=== PATIENT | male | born 1955 | race Caucasian/White ===

== ENCOUNTER 2018-05-19 14:36 | Inpatient (IN) | payer MEDICARE, OTHER ==
[~2018-05-19] VITALS: Ht 175.3 cm; Wt 99.2 kg
[2018-05-19] MEDS ORDERED: BUDE6HFA INH (14:57)
[2018-05-19 15:41] LABS: BASOPHILS ABSOLUTE AUTO 0.05 K/mm3 (0.00-0.23); BASOPHILS PERCENT AUTO 1 % (0-2); EOSINOPHILS ABSOLUTE AUTO 0.33 K/mm3 (0.00-0.68); EOSINOPHILS PERCENT AUTO 4 % (0-6); Hematocrit 44.2 % (37.0-53.0); Hemoglobin 15.6 g/dL (13.5-17.5); IMMATURE GRAN ABSOLUTE AUTO 0.02 K/mm3 (0.00-0.10); IMMATURE GRAN PERCENT AUTO 0 % (0-1); LYMPHOCYTES ABSOLUTE AUTO 2.39 K/mm3 (0.84-5.20); LYMPHOCYTES PERCENT AUTO 28 % (21-46); MONOCYTES ABSOLUTE AUTO 0.85 K/mm3 (0.16-1.47); MONOCYTES PERCENT AUTO 10 % (4-13); Mean Corpuscular HGB Conc 35.3 g/dL (31.5-36.5); Mean Corpuscular Volume 96 fL (80-100); NEUTROPHILS ABSOLUTE AUTO 4.97 K/mm3 (1.96-9.15); NEUTROPHILS PERCENT AUTO 58 % (41-73); Platelet Count 228 K/mm3 (150-400); RDW Coefficient Variation 12.1 % (11.7-14.2); RDW Standard Deviation 43.3 fL (35.1-46.3); Red Blood Cell Count 4.59 M/mm3 (4.30-5.90); White Blood Cell Count 8.61 K/mm3 (4.00-11.30)
[2018-05-19 16:01] LABS: Alanine Aminotransfer (ALT/SGP 30 U/L (12-78); Albumin, Blood 3.5 g/dL (3.4-5.0); Albumin/Globulin Ratio 1.1 (0.8-1.8); Alk Phos 95 U/L (50-136); Anion Gap 8 mmol/L (6-16); Aspartate Aminotrans (AST/SGOT 28 U/L (12-37); Bilirubin, Total 0.4 mg/dL (0.1-1.0); Blood Urea Nitrogen 19 mg/dL (8-24); Bun/Creatinine Ratio 19.7 (12.0-20.0); CO2, Blood 23 mmol/L (21-32); Calcium, Blood 8.5 mg/dL (8.5-10.1); Chloride, Blood 110 mmol/L (98-108); Creatinine, Blood 0.97 mg/dL (0.60-1.20); Globulin, Blood 3.3 g/dL (2.2-4.0); Glomerular Filtration Rate >60 (60-); Glucose, Blood 98 mg/dL (70-99); Potassium, Blood 4.3 mmol/L (3.5-5.5); Sodium, Blood 141 mmol/L (136-145); Total Protein, Blood 6.8 g/dL (6.4-8.2)
[2018-05-19 18:03] LABS: International Normalized Ratio 0.99; Prothrombin Time Results 10.2 Sec (9.7-11.5)
[2018-05-19] MEDS ORDERED: PARO10 PO (18:32)
[2018-05-19] MEDS ORDERED: LORATADINE PO (20:06)
[2018-05-19] MEDS ORDERED: ALBU90OI INH (20:06)
[2018-05-19] MEDS ORDERED: ST. JOHN'S WORT PO (20:08)
[2018-05-19] MEDS ORDERED: Vitamin B Comple1 EA PO (20:09)
[2018-05-19] MEDS ORDERED: ASPI81CH PO (20:54)
[2018-05-19] MEDS ORDERED: Excedrin Extra1 EACH PO (20:55)
[2018-05-19] MEDS ORDERED: IBUP400 PO (20:56)
[2018-05-19] MEDS ORDERED: SAW PALMETTO PO (20:59)
[2018-05-19] MEDS ORDERED: VITAMIN E PO (21:00)
[2018-05-19] MEDS ORDERED: Calcium + Vita1 EACH PO (21:01)
[2018-05-19] MEDS ORDERED: MELATONIN PO (21:01)
[2018-05-19] MEDS ORDERED: SELENIUM PO (21:02)
[2018-05-20 03:46] LABS: Anion Gap 8 mmol/L (6-16); Blood Urea Nitrogen 23 mg/dL (8-24); Bun/Creatinine Ratio 23.3 (12.0-20.0); CO2, Blood 26 mmol/L (21-32); Calcium, Blood 8.1 mg/dL (8.5-10.1); Chloride, Blood 108 mmol/L (98-108); Creatinine, Blood 0.99 mg/dL (0.60-1.20); Glomerular Filtration Rate >60 (60-); Glucose, Blood 97 mg/dL (70-99); Sodium, Blood 142 mmol/L (136-145)
[2018-05-21 04:07] LABS: Hemoglobin 15.6 g/dL (13.5-17.5); Mean Corpuscular HGB 33.7 pg (26.0-34.0); Mean Corpuscular HGB Conc 34.7 g/dL (31.5-36.5); Mean Corpuscular Volume 97 fL (80-100); Platelet Count 207 K/mm3 (150-400); RDW Coefficient Variation 12.2 % (11.7-14.2); Red Blood Cell Count 4.63 M/mm3 (4.30-5.90); White Blood Cell Count 5.99 K/mm3 (4.00-11.30)
[2018-05-21 04:27] LABS: Anion Gap 10 mmol/L (6-16); Blood Urea Nitrogen 21 mg/dL (8-24); CO2, Blood 24 mmol/L (21-32); Calcium, Blood 8.4 mg/dL (8.5-10.1); Chloride, Blood 107 mmol/L (98-108); Creatinine, Blood 0.96 mg/dL (0.60-1.20); Glomerular Filtration Rate >60 (60-); Glucose, Blood 116 mg/dL (70-99); Potassium, Blood 4.4 mmol/L (3.5-5.5); Sodium, Blood 141 mmol/L (136-145)
[2018-05-21] MEDS ORDERED: CARV3.125 PO (10:34)
[2018-05-21] MEDS ORDERED: ATOR40TA PO (10:34)
[2018-05-21] MEDS ORDERED: CLOP75 PO (10:35)
[2018-05-21] MEDS ORDERED: Nitrostat0.4 MG SL (10:36)
== END 2018-05-21 11:17 | disposition home or self-care (01) | DRG 247 ==
LOC: ER 14:36 → MEDS 17:31 → PCU 05-20 11:56 → MEDS 05-20 11:56 → PCU 05-20 13:24
PROVIDERS: Emergency Medicine; Internal Medicine
PROC: 027135Z Dilation of Coronary Artery, Two Arteries with Two Drug-eluting Intraluminal Devices, Percutaneous Approach (ICD-10-PCS; principal; 2018-05-20)
PROC: B241ZZ3 Ultrasonography of Multiple Coronary Arteries, Intravascular (ICD-10-PCS; 2018-05-20)
PROC: 4A023N7 Measurement of Cardiac Sampling and Pressure, Left Heart, Percutaneous Approach (ICD-10-PCS; 2018-05-20)
PROC: B2111ZZ Fluoroscopy of Multiple Coronary Arteries using Low Osmolar Contrast (ICD-10-PCS; 2018-05-20)
DX: I21.4 Non-ST elevation (NSTEMI) myocardial infarction (principal); I25.10 Atherosclerotic heart disease of native coronary artery without angina pectoris; E78.5 Hyperlipidemia, unspecified; G47.33 Obstructive sleep apnea (adult) (pediatric); E66.9 Obesity, unspecified; Z68.31 Body mass index [BMI] 31.0-31.9, adult; F43.10 Post-traumatic stress disorder, unspecified; J92.0 Pleural plaque with presence of asbestos; Z79.899 Other long term (current) drug therapy; Z79.82 Long term (current) use of aspirin
CPT/HCPCS: 36415; 80048; 80053; 84484; 85025; 85027; 85347; 85610; 85730; 92978; 92979; 93005; 93010; 93306; 93458; 93571; 93572; 94660; 94762; 96372; 96374; 96375; 99152; 99153; 99285-25; C1725; C1753; C1769; C1874; C1894; C9600; C9601; G0378; J1644; J2250; J3010; J7030; Q9967

== ENCOUNTER 2022-11-12 20:44 | Inpatient (IN) | payer OTHER, MEDICARE ==
[~2022-11-12] VITALS: Ht 175.3 cm; Wt 102.8 kg
[~2022-11-12 20:44] MED LIST: ALBU90OI INH; ASPI81CH PO; ATOR40TA PO; BUDE6HFA INH; CARV3.125 PO; CLOP75 PO; Calcium + Vita1 EACH PO; Excedrin Extra1 EACH PO; IBUP400 PO; LORATADINE PO; MELATONIN PO; NITR.4SL SL; PARO10 PO; SAW PALMETTO PO; SELENIUM PO; ST. JOHN'S WORT PO; VITAMIN E PO; Vitamin B Comple1 EA PO
[2022-11-12 21:17] LABS: BASOPHILS ABSOLUTE AUTO 0.06 K/mm3 (0.00-0.23); BASOPHILS PERCENT AUTO 1 % (0-2); EOSINOPHILS ABSOLUTE AUTO 0.29 K/mm3 (0.00-0.68); EOSINOPHILS PERCENT AUTO 3 % (0-6); Hematocrit 46.3 % (37.0-53.0); Hemoglobin 16.1 g/dL (13.5-17.5); IMMATURE GRAN ABSOLUTE AUTO 0.02 K/mm3 (0.00-0.10); IMMATURE GRAN PERCENT AUTO 0 % (0-1); LYMPHOCYTES ABSOLUTE AUTO 2.52 K/mm3 (0.84-5.20); LYMPHOCYTES PERCENT AUTO 29 % (21-46); MONOCYTES ABSOLUTE AUTO 0.95 K/mm3 (0.16-1.47); MONOCYTES PERCENT AUTO 11 % (4-13); Mean Corpuscular HGB Conc 34.8 g/dL (31.5-36.5); Mean Corpuscular Volume 98 fL (80-100); Mean Platelet Volume 9.4 fL (9.1-12.4); NEUTROPHILS ABSOLUTE AUTO 4.79 K/mm3 (1.96-9.15); NEUTROPHILS PERCENT AUTO 56 % (41-73); Platelet Count 236 K/mm3 (150-400); RDW Coefficient Variation 12.4 % (11.7-14.2); RDW Standard Deviation 44.9 fL (35.1-46.3); Red Blood Cell Count 4.74 M/mm3 (4.30-5.90); White Blood Cell Count 8.63 K/mm3 (4.00-11.30)
[2022-11-12 21:37] LABS: Albumin, Blood 3.5 g/dL (3.4-5.0); Albumin/Globulin Ratio 1.1 (0.8-1.8); Bilirubin, Total 0.3 mg/dL (0.1-1.0); Bun/Creatinine Ratio 16.6 (12.0-20.0); Calcium, Blood 8.7 mg/dL (8.5-10.1); Creatinine, Blood 1.51 mg/dL (0.60-1.20); Globulin, Blood 3.3 g/dL (2.2-4.0); Potassium, Blood 4.2 mmol/L (3.5-5.5); Total Protein, Blood 6.8 g/dL (6.4-8.2)
[2022-11-12 23:34] LABS: International Normalized Ratio 0.97; Prothrombin Time Results 10.2 Sec (9.7-11.5)
[2022-11-13 00:36] LABS: Anti-Xa UFH, PHA Monitoring <0.10 IU/mL
[2022-11-13 03:33] LABS: Calcium, Blood 8.3 mg/dL (8.5-10.1); Creatinine, Blood 1.28 mg/dL (0.60-1.20); Potassium, Blood 4.3 mmol/L (3.5-5.5)
--- NOTE | 2022-11-13 05:38 | NUR ---
SHIFT SUMMARY: PT ADMITTED TO UNIT AT 2330 ON 11/12/22. ABLE TO STAND AND PIVOT FROM GURNEY TO BED. A&OX4. INITIALLY ON TRANSFER COMPLAINTS OF CHEST PAIN 5/10 THAT IS TREATED SUCESSFULLY WITH 1 TAB SL NITRO. DENIES SOB DURING EPISODE. VSS. HR SR IN 80'S. BP'S WNL. O2 SATS > 92% ON RA WHILE AWAKE. PLACED ON 2 LPM WHILE SLEEPING DUE TO PT REPORTS HUGO AND USING CPAP AT HOME. , [place], IN TO VISIT PT FOR SHORT TIME AFTER LEARNIG PT WAS IN HOSPITAL. PT REPORTS PAST HX OF AZ'S AND BLOOD CLOTS, STATES REMOVING SELF FORM REGIMENT OF BLOOD THINNERS AFTER ANGIO IN 2018 DUE TO CONCERN OF SIDE EFFECTS. ATTEMPTED TO PROVIDE EDUCAOITN BUT PT RELUCTANT. WILL CONTINUE TO ATTEMPT REINFORMENT OF EDUCATION. PT ORIENTED TO CALL LIGHT, ABLE TO USE APPROPRIATELY.
--- NOTE | 2022-11-13 18:43 | NUR ---
Shift summary. Pt rested in bed throughout shift. Taken to clinical lab technologist this afternoon, [address] Gee, see surgical notes for details. Pt resting comfortably post-procedure. No acute events during shift. See surgical notes and assessement for details. Will report off to oncoming RN.
[2022-11-14 04:07] LABS: BASOPHILS ABSOLUTE AUTO 0.04 K/mm3 (0.00-0.23); BASOPHILS PERCENT AUTO 1 % (0-2); EOSINOPHILS ABSOLUTE AUTO 0.33 K/mm3 (0.00-0.68); EOSINOPHILS PERCENT AUTO 5 % (0-6); Hematocrit 43.5 % (37.0-53.0); Hemoglobin 15.4 g/dL (13.5-17.5); IMMATURE GRAN ABSOLUTE AUTO 0.01 K/mm3 (0.00-0.10); IMMATURE GRAN PERCENT AUTO 0 % (0-1); LYMPHOCYTES PERCENT AUTO 21 % (21-46); MONOCYTES ABSOLUTE AUTO 0.65 K/mm3 (0.16-1.47); MONOCYTES PERCENT AUTO 11 % (4-13); Mean Corpuscular HGB Conc 35.4 g/dL (31.5-36.5); Mean Corpuscular Volume 96 fL (80-100); Mean Platelet Volume 9.5 fL (9.1-12.4); NEUTROPHILS ABSOLUTE AUTO 3.78 K/mm3 (1.96-9.15); NEUTROPHILS PERCENT AUTO 62 % (41-73); Platelet Count 192 K/mm3 (150-400); RDW Coefficient Variation 12.2 % (11.7-14.2); RDW Standard Deviation 43.2 fL (35.1-46.3); Red Blood Cell Count 4.53 M/mm3 (4.30-5.90); White Blood Cell Count 6.11 K/mm3 (4.00-11.30)
[2022-11-14 04:29] LABS: Albumin, Blood 2.9 g/dL (3.4-5.0); Anion Gap 7 mmol/L (6-16); Blood Urea Nitrogen 21 mg/dL (8-24); Bun/Creatinine Ratio 21.1 (12.0-20.0); CHOL/HDL RATIO 4.4; CO2, Blood 24 mmol/L (21-32); Calcium, Blood 8.6 mg/dL (8.5-10.1); Chloride, Blood 110 mmol/L (98-108); Cholesterol 230 mg/dL (50-200); Glomerular Filtration Rate 82 (60-); Glucose, Blood 113 mg/dL (70-99); HDL Cholesterol 52 mg/dL (>39); LDL/HDL RATIO 2.9; Low Density Lipoprotein Chol 150 mg/dL (0-110); Phosphorus, Blood 3.4 mg/dL (2.5-4.9); Potassium, Blood 4.2 mmol/L (3.5-5.5); Sodium, Blood 141 mmol/L (136-145); Triglycerides 140 mg/dL (30-160); Very Low Density Lipoprot Chol 28 mg/dL (6-32)
--- NOTE | 2022-11-14 04:54 | NUR ---
SHIFT SUMMARY: PT ALERT AND ORIENTED X4, ABLE TO FOLLOW COMMANDS AND MAKE NEEDS KNOWN. BP STABLE, HR SB-SR, AFEBRILE, SATURATIONS >95% ON NC. NO COMPLAINTS OF CP/PRESSURE/SOB THROUGHOUT THE NIGHT. TR BAND FULLY RECOVERED AT 2138. NO SIGNS OF BLEEDING/HEMATOMA. TEGADERM IN PLACE WITH ARMBOARD. RADIAL PULSES STRONG. AT BEDSIDE BEGINNING OF SHIFT AND UPDATED ON PT CARE. PT IND IN ROOM, ABLE TO USE URINAL AT BEDSIDE. NO BM THIS SHIFT. REPOS IND. BED IN LOW, CALL LIGHT IN REACH, WILL REPORT TO ONCOMING RN.
--- NOTE | 2022-11-14 08:05 | NUR ---
AM ASSESSMENT: Pt up in room independently. Denies CP, SOB. Pt anxious to discharge today. Bag Press Operator saw pt and ok to D/C from his standpoint. LS clear. HR reg. BT positive. R radial site with no s/s of bleeding, oozing, swelling. VSS. Pt denies needs at this time. Call light in reach. Will monitor.
[2022-11-14] MEDS ORDERED: EFFIENT10 MG PO (09:30)
--- NOTE | 2022-11-14 09:45 | NUR ---
Discharge: Pt and his were given printed and written discharge instructions. Denies questions at this time. IV's discontinued, caths intact. RX were faxed to [facility]. Pt ambulated out with this RN. Stable at time of discharge.
[2022-11-22] MEDS ORDERED: BENZ100A PO (12:47)
== END 2022-11-14 10:25 | disposition home or self-care (01) | DRG 246 ==
LOC: ER 20:44 → PCU 23:22
PROVIDERS: Emergency Medicine; Family Medicine; ADMIT Internal Medicine
PROC: 027036Z Dilation of Coronary Artery, One Artery with Three Drug-eluting Intraluminal Devices, Percutaneous Approach (ICD-10-PCS; principal; 2022-11-13)
PROC: B240ZZ3 Ultrasonography of Single Coronary Artery, Intravascular (ICD-10-PCS; 2022-11-13)
PROC: B211YZZ Fluoroscopy of Multiple Coronary Arteries using Other Contrast (ICD-10-PCS; 2022-11-13)
DX: T82.855A Stenosis of coronary artery stent, initial encounter (principal); I21.4 Non-ST elevation (NSTEMI) myocardial infarction; N17.9 Acute kidney failure, unspecified; I25.10 Atherosclerotic heart disease of native coronary artery without angina pectoris; Z95.5 Presence of coronary angioplasty implant and graft; F43.10 Post-traumatic stress disorder, unspecified; G47.33 Obstructive sleep apnea (adult) (pediatric); N18.30 Chronic kidney disease, stage 3 unspecified; E78.5 Hyperlipidemia, unspecified; J92.0 Pleural plaque with presence of asbestos; Z87.891 Personal history of nicotine dependence; Z79.82 Long term (current) use of aspirin; Z79.02 Long term (current) use of antithrombotics/antiplatelets; Z91.14 Patient's other noncompliance with medication regimen; I12.9 Hypertensive chronic kidney disease with stage 1 through stage 4 chronic kidney disease, or unspecified chronic kidney disease
CPT/HCPCS: 36415; 71045; 76937; 80048; 80053; 80061; 80069; 84484; 85025; 85347; 85520; 85610; 85730; 92978; 93005; 93010; 93454; 94640; 94664; 94762; 96361; 96372; 96374; 96375; 99152; 99153; 99285-25; A9270; C1725; C1753; C1769; C1874; C1887; C1894; C9600; G0378; J1644; J2250; J2270; J2405; J3010; J7030; J7120; Q9967

== ENCOUNTER 2025-01-27 11:48 | Emergency (ER) | payer MEDICARE, OTHER ==
[~2025-01-27] VITALS: Ht 175.3 cm; Wt 97.5 kg
[~2025-01-27 11:48] MED LIST changes: +BENZ100A PO; +EFFIENT10 MG PO
[2025-01-27 12:21] LABS: BASOPHILS ABSOLUTE AUTO 0.07 K/mm3 (0.00-0.23); BASOPHILS PERCENT AUTO 1 % (0-2); EOSINOPHILS ABSOLUTE AUTO 0.45 K/mm3 (0.00-0.68); EOSINOPHILS PERCENT AUTO 6 % (0-6); Hematocrit 50.5 % (37.0-53.0); Hemoglobin 17.5 g/dL (13.5-17.5); IMMATURE GRAN ABSOLUTE AUTO 0.02 K/mm3 (0.00-0.10); IMMATURE GRAN PERCENT AUTO 0 % (0-1); LYMPHOCYTES ABSOLUTE AUTO 1.49 K/mm3 (0.84-5.20); LYMPHOCYTES PERCENT AUTO 19 % (21-46); MONOCYTES ABSOLUTE AUTO 1.28 K/mm3 (0.16-1.47); MONOCYTES PERCENT AUTO 16 % (4-13); Mean Corpuscular HGB 34.5 pg (26.0-34.0); Mean Corpuscular HGB Conc 34.7 g/dL (31.5-36.5); Mean Corpuscular Volume 100 fL (80-100); Mean Platelet Volume 9.6 fL (9.1-12.4); NEUTROPHILS PERCENT AUTO 58 % (41-73); Platelet Count 195 K/mm3 (150-400); RDW Coefficient Variation 13.2 % (11.7-14.2); RDW Standard Deviation 49.1 fL (35.1-46.3); Red Blood Cell Count 5.07 M/mm3 (4.30-5.90); White Blood Cell Count 7.81 K/mm3 (4.00-11.30)
[2025-01-27 13:11] LABS: Influenza A, PCR NEGATIVE (NEGATIVE); Influenza B, PCR NEGATIVE (NEGATIVE); SARS-Cov-2 (COVID-19) PCR, MMC NEGATIVE (NEGATIVE)
[2025-01-27 13:15] LABS: Resp Syncytial Virus, PCR POSITIVE (NEGATIVE)
[2025-01-27 13:17] LABS: Albumin, Blood 3.7 g/dL (3.4-5.0); Albumin/Globulin Ratio 1.1 (0.8-1.8); Bilirubin, Total 0.8 mg/dL (0.1-1.0); Bun/Creatinine Ratio 14.3 (12.0-20.0); Creatinine, Blood 1.33 mg/dL (0.60-1.20); Globulin, Blood 3.3 g/dL (2.2-4.0); Potassium, Blood 4.6 mmol/L (3.5-5.5)
[2025-01-27] MEDS ORDERED: ALBU90OI INH (13:35)
[2025-01-27] MEDS ORDERED: PRED20 PO (13:35)
[2025-01-27 14:00] VITALS: BP 152/87
== END 2025-01-27 14:46 | disposition home or self-care (01) ==
LOC: ER 11:48
PROVIDERS: Student in an Organized Health Care Education/Training Program
DX: J20.5 Acute bronchitis due to respiratory syncytial virus (principal); Z91.048 Other nonmedicinal substance allergy status; Z79.51 Long term (current) use of inhaled steroids; Z79.82 Long term (current) use of aspirin; Z79.02 Long term (current) use of antithrombotics/antiplatelets; Z79.899 Other long term (current) drug therapy
CPT/HCPCS: 0241U; 71046; 80053; 85025; 93005; 93010; 99284-25